=== PATIENT | male | born 1950 | race Caucasian/White ===

== ENCOUNTER → 2018-12-04 11:47 | Outpatient (CLI) | payer BC, SELFPAY ==
--- NOTE | 2018-12-04 | DI.RAD.S_ITS ---
PROCEDURE: XR CHEST 2V INDICATIONS: NIGHT SWEATS TECHNIQUE: 2 views of the chest were acquired. COMPARISON: None. FINDINGS: Surgical changes and devices: None. Lungs and pleura: No pleural effusion or pneumothorax. There is a hazy opacity projecting over the left lung base overlying the lateral left cardiac silhouette. There are mild perihilar opacities near the right hilar region. Mediastinum: Mediastinal contours are normal. Heart size is normal. Bones and chest wall: No suspicious bony abnormalities. Soft tissues appear unremarkable. IMPRESSION: 1. Hazy opacity projecting over the left lung base may represent atelectasis versus pneumonia in the appropriate clinical setting. 2. Right perihilar opacities most consistent with atelectasis, less likely aspiration or pneumonia. Dictated by: Singh Rivera M.D. on 12/04/2018 at 13:31 Approved by: Singh Rivera M.D. on 12/04/2018 at 13:39
== END ==
PROVIDERS: PCP Internal Medicine; Visit Provider Internal Medicine
DX: R61 Generalized hyperhidrosis (principal)
CPT/HCPCS: 71046

== ENCOUNTER → 2018-12-10 09:12 | Outpatient (CLI) | payer BC, SELFPAY ==
--- NOTE | 2018-12-10 | DI.CT.S_ITS ---
PROCEDURE: CT CHEST W CON INDICATIONS: Generalized hyperhidrosis TECHNIQUE: After the administration of intravenous contrast, 5 mm thick sections acquired from the pulmonary apices to the posterior costophrenic angles. 1 mm axial lung, 5 mm thick coronal and sagittal reformats and 7 mm axial MIP were acquired. For radiation dose reduction, the following was used: automated exposure control, adjustment of mA and/or kV according to patient size. COMPARISON: [facility], CR, XR CHEST 2V, 12/04/2018, 11:54. FINDINGS: Image quality: Excellent. Lungs and pleura: No acute consolidation. Scattered subsegmental atelectasis and/or scarring. This likely corresponds to the radiographic appearance from prior study. No pleural effusion. No pneumothorax. Mediastinum: Heart size is normal. No pericardial effusion. No mediastinal or hilar adenopathy by size criteria. Thoracic aorta and central pulmonary arteries are normal in size. Esophagus is normal in caliber. No hiatal hernia. Bones and chest wall: No suspicious bony lesions. No vertebral body compression fractures. No axillary or supraclavicular adenopathy by size criteria. Thyroid gland unremarkable. Diffuse spondylosis and facet disease. Abdomen: Moderate steatosis. Subcentimeter presumed right renal cysts although technically indeterminate and too small to characterize. IMPRESSION: Scattered atelectasis/scarring. No acute consolidation. Mild hepatic steatosis. Dictated by: Thomas Pearson M.D. on 12/10/2018 at 10:58 Approved by: Thomas Pearson M.D. on 12/10/2018 at 11:08
== END ==
PROVIDERS: PCP Internal Medicine; Visit Provider Internal Medicine
DX: R61 Generalized hyperhidrosis (principal); K76.0 Fatty (change of) liver, not elsewhere classified
CPT/HCPCS: 71260; Q9967